=== PATIENT | male | born 2000 | race Two or more races ===

== ENCOUNTER 2022-02-24 13:43 | Emergency (ER) | payer OTHER ==
[~2022-02-24] VITALS: Ht 182.9 cm; Wt 90.7 kg
[2022-02-24 13:50] VITALS: BP 120/79
[2022-02-24] MEDS ORDERED: CEPH-509 PO (19:19)
== END 2022-02-24 19:34 | disposition home or self-care (01) ==
LOC: ER 13:43
DX: S61.216A Laceration without foreign body of right little finger without damage to nail, initial encounter (principal); W26.9XXA Contact with unspecified sharp object(s), initial encounter; Y93.89 Activity, other specified; Y92.89 Other specified places as the place of occurrence of the external cause; Y99.8 Other external cause status
CPT/HCPCS: 12001

== ENCOUNTER 2022-07-21 13:21 | Emergency (ER) | payer OTHER ==
[~2022-07-21] VITALS: Ht 182.9 cm; Wt 94.1 kg
[~2022-07-21 13:21] MED LIST: CEPH-509 PO
[2022-07-21 16:05] LABS: Urine Bacteria NONE SEEN /hpf (None Seen); Urine Blood Negative /uL (Negative); Urine Mucus FEW (None Seen); Urine Specific Gravity 1.025 (1.001-1.035); Urine WBC 1 /hpf (0 - 3)
[2022-07-21] MEDS ORDERED: SODIUM CHLORIDE 0.9% 1,000 ML IV ONE ×2 (18:15→20:00)
[2022-07-21] MEDS ORDERED: ONDANSETRON ODT 4 MG TAB PO ONE (18:15)
[2022-07-21 18:39] LABS: Basophils # (auto) 0 10 ^3/uL (0-0.2); Eosinophils # (auto) 0.1 10 ^3/uL (0-0.8); Mean Corpuscular Hemoglobin 27.7 pg (28.0-32.0); Monocytes # (auto) 0.4 10 ^3/uL (0-1.3); Red Cell Distribution Width 13.5 % (11.8-14.3)
[2022-07-21 18:41] LABS: Basophils % (auto) 0.3 % (0.0-2.0); Eosinophils % (auto) 0.8 % (0.0-7.0); Hematocrit 50.5 % (41.0-53.0); Hemoglobin 16.9 g/dL (13.5-17.5); Lymphocytes # (auto) 1.1 10 ^3/uL (0.4-5.4); Lymphocytes % (auto) 9.4 % (10.0-50.0); Mean Corpuscular Hgb Conc. 33.4 g/dL (32.0-36.0); Monocytes % (auto) 3.3 % (0.0-12.0); Neutrophils # (auto) 9.9 10 ^3/uL (1.6-8.6); Neutrophils % (auto) 86.2 % (37.0-80.0); Nucleated Red Blood Cells % 0.1 %; Red Blood Cells 6.09 10^6/uL (4.5-5.90); White Blood Cell 11.5 10^3/uL (4.4-10.8)
[2022-07-21 18:56] LABS: Albumin 4.5 g/dL (3.4-5.0); BUN/Creatinine Ratio 14.9; Calcium 10.2 mg/dL (8.5-10.1); Magnesium 2.4 mg/dL (1.6-2.6); Potassium 4.4 mmol/L (3.5-5.1)
[2022-07-21 18:59] LABS: Bilirubin, Total 0.6 mg/dL (0.2-1.0)
[2022-07-21] MEDS ORDERED: MECLIZINE HCL 25 MG TAB PO ONE (21:45)
[2022-07-21] MEDS ORDERED: AZIT250T8 PO (22:07)
[2022-07-21 22:29] VITALS: BP 137/79
== END 2022-07-21 22:41 | disposition home or self-care (01) ==
LOC: ER 13:21
DX: E86.0 Dehydration (principal); R42 Dizziness and giddiness; J32.9 Chronic sinusitis, unspecified; F12.10 Cannabis abuse, uncomplicated
CPT/HCPCS: 36415; 74177; 80053; 81001; 83690; 83735; 85025; 96360; 96361; 99285; J7030; J8597; Q0162; Q9967